=== PATIENT | female | born 1955 | race Caucasian/White ===

== ENCOUNTER 2025-01-06 20:16 | Emergency (ER) | payer MEDICARE, OTHER ==
[2025-01-06] MEDS: Ibuprofen 600 MG Tab PO ONE (22:50)
== END 2025-01-06 22:53 | disposition home or self-care (01) ==
LOC: JD.ED 20:16
DX: S82.034A Nondisplaced transverse fracture of right patella, initial encounter for closed fracture (principal); Z86.16 Personal history of COVID-19; W01.0XXA Fall on same level from slipping, tripping and stumbling without subsequent striking against object, initial encounter; Y93.01 Activity, walking, marching and hiking
CPT/HCPCS: 73562; 99283; A9270